=== PATIENT | female | born 1965 | race Hispanic/Latino ===

== ENCOUNTER 2019-04-20 01:18 | Outpatient (CLI) | payer BC ==
[2019-04-20 18:07] LABS: Anion Gap 15 mmol/L (10-20); BUN (Urea Nitrogen) 16 mg/dL (9.8-20.1); Calc. Creatinine Clearance 0 mL/min (70-130); Calcium 9.9 mg/dL (7.8-10.44); Carbon Dioxide 21 mmol/L (22-29); Chloride 105 mmol/L (98-107); Estimated GFR-MDRD 56; Glucose 101 mg/dL (70-105); Potassium 4.1 mmol/L (3.5-5.1); Sodium 137 mmol/L (136-145)
--- NOTE | 2019-04-22 11:59 | EKG ---
Test Reason : Blood Pressure : / mmHG Vent. Rate : 087 BPM Atrial Rate : 087 BPM P-R Int : 170 ms QRS Dur : 086 ms QT Int : 358 ms P-R-T Axes : 066 014 040 degrees QTc Int : 430 ms Normal sinus rhythm Low voltage QRS Cannot rule out Anterior infarct , age undetermined Abnormal ECG When compared with ECG of 07-DEC-2014 10:41, No significant change was found Confirmed by DR. Chasity ROCK ([id number]) on 04/22/2019 11:59:13 AM Referred By: AMY Confirmed By:DR. Chasity ROCK
== END 2019-04-20 01:19 | disposition home or self-care (01) ==
LOC: LABBT 01:18
PROVIDERS: ATTEND Obstetrics & Gynecology
DX: Z01.818 Encounter for other preprocedural examination (principal); D21.9 Benign neoplasm of connective and other soft tissue, unspecified
CPT/HCPCS: 80048; 93005; 93010

== ENCOUNTER 2019-04-20 16:15 | Inpatient (IN) | payer BC ==
[2019-04-20 17:26] VITALS: BMI 48.8
[2019-04-20 17:43] LABS: Hemoglobin 15.3 g/dL (12.0-16.0); Mean Corpuscular Hemoglobin 27.4 pg (27.0-31.0); Mean Corpuscular Volume 85.6 fL (78.0-98.0); Mean Platelet Volume 6.4 fL (7.4-10.4); Platelet Count 363 thou/uL (130-400); RBC Distribution Width 14.3 % (11.5-14.5); White Blood Cell (WBC) Count 11.5 thou/uL (4.8-10.8)
--- NOTE | 2019-04-20 23:53 | HP ---
DATE OF PLANNED PROCEDURE: 04/21/2019. PREOPERATIVE DIAGNOSES: 1. Large fibroid uterus. 2. Morbid obesity. 3. Personal history of breast cancer. SURGERY TO BE PERFORMED: Total abdominal hysterectomy with bilateral salpingo-oophorectomy with placement of On-Q nerve block pump. HISTORY OF PRESENT ILLNESS: Ms. Bri Goodrich is a 54-year-old, postmenopausal, G2, P2, who has been a patient of Dr. Hoyt' since 2014 with a known large fibroid uterus since then. The patient declined surgery in the past as she was asymptomatic to the large fibroid uterus. She now reports more pelvic pain and now desires hysterectomy. The patient is approximately 5 years in remission from stage 3 left-sided breast cancer, who had bilateral mastectomy. Her past medical history also includes morbid obesity, hypertension, diabetes, and GERD. PAST MEDICAL HISTORY: GERD, diabetes, hypertension and history of triple negative left-sided breast cancer. ALLERGIES: NO KNOWN DRUG ALLERGIES. PAST SURGICAL HISTORY: Two previous sections and bilateral mastectomy. FAMILY HISTORY: Significant for diabetes, colon cancer in her father, leukemia in her father, hypertension. SOCIAL HISTORY: The patient has never been a smoker. She does not drink alcohol or do illicit drugs. OBSTETRICAL HISTORY: Two previous sections. GYNECOLOGIC HISTORY: Last menstrual period many years ago with the exception of spotting noted one time in December 2017, which was evaluated by her primary care provider and Dr. Hoyt. The patient is sexually active. She denies any STDs or PID in her most recent Pap smear and is negative for HPV. PHYSICAL EXAMINATION: VITAL SIGNS: Height 5 feet, weight 252 pounds, BMI 49, blood pressure 136/84, pulse 89, respirations 18, O2 saturation 99%. GENERAL: No acute distress. Alert and oriented. Obese. HEENT: Grossly normal. CARDIOVASCULAR: Regular rate and rhythm. LUNGS: Nonlabored breathing. ABDOMEN: Enlarged pelvic mass suspected as fibroid uterus to approximately 3 or 4 cm above the umbilicus and extending to the pelvic sidewall. SKIN: No rashes. : Deferred at time of preop exam. PSYCHIATRIC: Appropriate mood and affect. ASSESSMENT AND PLAN: Ms. Bri Goodrich is a 54-year-old, G2, P2, with a large fibroid uterus that was first noted approximately 4 years ago on an exam by Dr. Hoyt and has been asymptomatic to the mass until now. The patient now requests removal of the fibroid uterus, tubes, and ovaries with total abdominal hysterectomy, bilateral salpingo-oophorectomy. Because of the difficulty examining the patient accurately, because of an obese habitus and the palpable size of the mass, an MRI was ordered and recommended; however, the patient declined the MRI due to cost, understanding that an MRI would be helpful in risk stratifying the mass to malignancy as well as for surgical planning, we discussed intraoperative ureteral stent placement, which has been requested from the urology team. The patient is aware of the risks and benefits of surgery. She is also aware that if malignancy is noted, future medical and/or surgical management will likely be necessary. The patient understands the risks and benefits of the procedure to include, but not limited to, bleeding, infection, damage to intraabdominal organs or organs in the pelvis, inability to fully diagnose and treat all conditions at the time of surgery with possible need for future medical and/or surgical management, she also understands the risk of surgery which include bleeding, infection, blood clots in the legs or lungs or risk due to anesthesia that will be reviewed with her on the day of surgery. The patient's questions have been answered to her satisfaction. We also reviewed postoperative pain control plans including the On-Q pump, which the patient is interested in. The patient's questions have been answered to her satisfaction and she desires to proceed with the procedure as listed above. Job ID: [id number]
[2019-04-21] MEDS ORDERED: CeleCOXIB 100 MG CAP ONE (10:47)
[2019-04-21] MEDS ORDERED: Gabapentin 300 MG CAP ONE (10:47)
[2019-04-21] MEDS ORDERED: Famotidine/PF 20 mg/2ml Vial ONE (10:48)
[2019-04-21] MEDS ORDERED: Midazolam HCl 2 mg/2 ml Vial ONE (12:19)
[2019-04-21] MEDS ORDERED: Fentanyl 250 MCG/5 ML VIAL ONE (12:19)
[2019-04-21] MEDS ORDERED: Iothalamate Meglumine 60% 50 ML VIAL FS ONE (12:27)
[2019-04-21] MEDS ORDERED: Ropivacaine 0.2% 550 ML 750 ML NERVE BLCK SCH ×2 (12:30→14:45)
[2019-04-21] MEDS ORDERED: Levofloxacin 500 mg/D5W 100 ml Premix Bag ONE (12:36)
[2019-04-21] MEDS ORDERED: Ketorolac Tromethamine 30 MG/ML VIAL ONE (13:35)
[2019-04-21] MEDS ORDERED: Rocuronium Bromide 10 MG/ML (10ML VIAL) ONE ×2 (13:35→13:38)
[2019-04-21] MEDS ORDERED: Ondansetron PF 4 MG/2 ML Vial ONE ×2 (13:35→13:38)
[2019-04-21] MEDS ORDERED: Glycopyrrolate 0.2 MG/ML 5 ML SYRINGE ONE (13:35)
[2019-04-21] MEDS ORDERED: PROPOFOL 200 MG/20 ML VIAL ONE ×2 (13:35→13:38)
[2019-04-21] MEDS ORDERED: PHENYLEPHRINE-NS 100 MCG/ML 10 ML SYRINGE ONE (13:35)
[2019-04-21] MEDS ORDERED: Lidocaine 1% PF 5 ML VIAL ONE (13:38)
--- NOTE | 2019-04-21 14:41 | RAD ---
RETROGRADE PYELOGRAM: 2 fluoroscopic images from OR presented during retrograde procedure. INDICATION: Imaging during retrograde procedure and stent placement. FINDINGS/IMPRESSION: First image shows a right double pigtail ureteral stent and opacification of the left collecting stru ctures. The final images show bilateral double pigtail ureteral stents in place. POS: OFF
[2019-04-21] MEDS ORDERED: Ropivacaine HCl/PF 750 ML NERVE BLCK SCH (14:45)
[2019-04-21] MEDS ORDERED: Bupivacaine 0.25% HCL 30 ML VIAL ONE (16:32)
[2019-04-21] MEDS ORDERED: Morphine 4 MG/ML VIAL ONE (16:54)
[2019-04-21] MEDS ORDERED: Fentanyl 100 MCG/2 ML VIAL ONE (17:39)
--- NOTE | 2019-04-21 18:10 | OP ---
DATE OF PROCEDURE: 04/21/2019 PREOPERATIVE DIAGNOSIS: A 54-year-old female with large uterine fibroid. POSTOPERATIVE DIAGNOSIS: A 54-year-old female with large uterine fibroid. PROCEDURES PERFORMED: Cystoscopy, urethral dilatation, bilateral retrograde pyelogram, bilateral ureteral stent: Right 6 x 22, left 6 x 24 both on Dangler Gagnon catheter placement, urethral dilation ANESTHESIA: General. COMPLICATIONS: None apparent. DISPOSITION: To recovery room in stable condition. INDICATIONS FOR PROCEDURE AND HISTORY: Ms. Goodrich is a 54-year-old female undergoing total abdominal hysterectomy by Dr. Floyd due to very large uterine fibroids. She requested regarding bilateral ureteral stent due to large uterine mass. The patient desired to proceed. The patient was seen in preop, consented for the procedure above. DESCRIPTION OF PROCEDURE: After an informed consent was signed, the patient was taken to the operating room, placed in a dorsal lithotomy position with the genital area prepped and draped in the usual surgical sterile fashion. She was provided broad-spectrum antibiotics, bilateral JULIO CÉSAR hose and SCDs were placed. The patient was placed in dorsal lithotomy position. I attempted to pass a 21-Urdu cystoscope; however, there was resistance as she had atrophic urethral meatus. Using dilators, I was able to calibrate her urethra easily from 18 to 20-Urdu with ease. Subsequently, I passed a 22-Urdu cystoscope under direct visualization without significant issues. Upon entering the bladder, clear urine was noted. The bladder had somewhat of a decreased capacity due to large uterine fibroid. The UOs were identified, which appeared to be mildly patulous bilaterally. An open- ended catheter was utilized to perform right retrograde pyelogram first. There was no evidence of hydronephrosis or filling defect. I was able to pass a 0.35 Sensor wire into the lower pole and a 6 x 22 double-J ureteral stent was passed on Dangler. Bladder was emptied, and we repeated a retrograde on the left side. This kidney appeared to be somewhat higher up. Therefore, a retrograde pyelogram was performed first demonstrating no evidence of pathology with the wire 0.35 in the left upper pole, 6 x 24 double-J ureteral stent was passed. Both stents were placed on Dangler, and a 16-Urdu Gagnon catheter passed without significant issues. Danglers were taped to the patient's Gagnon. Case turned over to Gynecology to proceed with total abdominal hysterectomy. Her Gagnon catheter and her ureteral stent can be removed at the discretion of her advertising analyst at the termination of the case. She has mild urethral stenosis not of significant concern. Job ID: [id number] MTDD
[2019-04-21] MEDS ORDERED: Meperidine HCl/PF 25 MG/ML VIAL IV PRN (18:12)
[2019-04-21] MEDS ORDERED: Ondansetron HCl/PF 4 MG/2 ML Vial IVP PRN (18:12)
[2019-04-21] MEDS ORDERED: Promethazine HCl 25 MG/ML VIAL IM/IV PRN (18:12)
[2019-04-21] MEDS ORDERED: Bisacodyl 10 MG SUPP PR PRN (18:46)
[2019-04-21] MEDS ORDERED: diphenhydrAMINE 25 MG CAP PO PRN (18:46)
[2019-04-21] MEDS ORDERED: Morphine 4 MG/ML VIAL SLOW IVP PRN (18:46)
[2019-04-21] MEDS ORDERED: Promethazine HCl 25 MG/ML VIAL IM PRN (18:46)
[2019-04-21] MEDS ORDERED: HYDROcodone/Acetaminophen 5/325 mg Tablet PO PRN ×2 (18:46)
[2019-04-21] MEDS ORDERED: Ondansetron PF 4 MG/2 ML Vial IVP PRN (18:46)
[2019-04-21] MEDS ORDERED: Zolpidem Tartrate 5 MG TAB PO PRN (18:46)
[2019-04-21] MEDS ORDERED: Simethicone Chewable 80 MG TAB PO PRN (18:46)
[2019-04-21] MEDS ORDERED: Insulin Regular 300 UNITS/3 ML VIAL SC PRN (18:46)
--- NOTE | 2019-04-21 18:55 | CON ---
DATE OF CONSULTATION: 04/21/2019 REASON FOR CONSULTATION: Perioperative ureteral stents requested. HISTORY OF PRESENT ILLNESS: Ms. Goodrich is a 54-year-old female, undergoing surgery with Dr. Robbie Floyd today for total abdominal hysterectomy, bilateral salpingo-oophorectomy due to large uterine fibroids. The patient's medication history reviewed. Dr. Floyd requesting perioperative ureteral stent, as she was concerned regarding intraoperative injury that may occur as her uterus is quite large. The patient denies history of dysuria, gross hematuria, or recurrent UTI. Seen and evaluated in preop. PAST MEDICAL HISTORY: Breast cancer, hypertension, and diabetes. PAST SURGICAL HISTORY: x2, MediPort placement, and bilateral mastectomy. CODE STATUS: Full. SOCIAL HISTORY: Negative x3. Family at bedside. HOME MEDICATIONS: Include: 1. Vitamin D. 2. Baby aspirin. 3. Metformin. 4. Metoprolol. 5. Lisinopril. ALLERGIES: NO KNOWN DRUG ALLERGIES. REVIEW OF SYSTEMS: Ten-point review of systems as above, otherwise noncontributory. PHYSICAL EXAMINATION: GENERAL: The patient is in no acute distress. HEENT: Unremarkable. HEART: Regular rate. LUNGS: Clear. ABDOMEN: Obese and protuberant. No rigidity. No rebound. : Deferred. PSYCHIATRIC: Appears to be appropriate and intact. NEUROLOGIC: No gross focal deficits. PERTINENT LABORATORY DATA: White count 11, hemoglobin 15, platelets 363. Creatinine is 1.02. No recent urinalysis. IMPRESSION AND PLAN: A 54-year-old female with large uterine fibroid, undergoing total abdominal hysterectomy, bilateral salpingo-oophorectomy. Urologic consultation obtained for perioperative ureteral stent requested by gynecologic service. The patient informed. Questions encouraged and answered. If no evidence of ureteral injury of concern, ureteral stent can be removed by gynecologic service post procedure. Job ID: [id number] [facility]
[2019-04-21] MEDS: Sodium Chloride 0.9% 1,000 ML IV SCH (21:03)
--- NOTE | 2019-04-21 22:29 | OP ---
DATE OF PROCEDURE: 04/21/2019 PREOPERATIVE DIAGNOSES: 1. Pelvic mass, suspected fibroid uterus. 2. Obesity. PROCEDURES PERFORMED: 1. Myomectomy to complete a total abdominal hysterectomy with bilateral salpingo -oophorectomy. 2. Cystoscopy with bilateral ureteral stent placement prior to hysterectomy per Dr. Danica Schulz. 3. Placement of ON-Q nerve block pump. SURGEON: Robbie Floyd DO CRIME SCENE ANALYST: Lilian Camp MD COMPLICATIONS: None. ESTIMATED BLOOD LOSS: 750 mL. ANESTHESIA: GETA. FINDINGS: 1. Abdominal mass that palpates sidewall to sidewall and approximately 4 to 5 cm above the umbilicus. Intraoperative findings with dominant approximate 25 cm diameter fibroid. 2. Normal-appearing fallopian tubes and ovaries. DESCRIPTION OF PROCEDURE: The patient was taken back to the cysto room with IV fluids running and general anesthesia was obtained. Cystoscopy and bilateral ureteral stent placement were performed by Dr. Danica Schulz for concern of distorted anatomy and large pelvic mass. Please see her dictation for full details. After the cystoscopy and ureteral stent placement was completed, the patient was transferred to [facility] for the hysterectomy. She was placed in dorsal supine position. The vagina and the abdomen were prepped and draped in normal fashion for hysterectomy. 2 g of Ancef were administered. Of note, she received preoperative Levaquin prior to her cystoscopy. She had SCDs placed on her bilateral lower extremities prior to the start of the cystoscopy. The surgeons were gowned and gloved after scrubbing into the case. A vertical midline incision was made from just above the pubic symphysis to approximately 4 cm above the umbilicus. Skin incision was carried down through the subcutaneous tissue until the fascia was reached. Once the fascia was reached, it was incised in the midline and extended the full length of the incision with a scalpel or with the curved Zurita scissors. The peritoneum was entered and stretched laterally. The peritoneum was dissected and incised to allow full visualization of the mass. One dominant fibroid was suspected in the enlarged uterus. The specimen was lifted through the incision with minimal adhesions noted between the omentum and the uterus. These adhesions were taken down with Bovie cauterization and blunt dissection. A Bookwalter retractor was assembled. Lateral retractors were placed as well as a superior retractor and bladder blade. The bowel was packed away with moist sponges. The hysterectomy portion began on the patient's left side, where a left round ligament was noted to be very attenuated, but was identified. It was grasped with a Paula clamp, suture ligated with Vicryl suture and incised. The round ligament was dissected down anteriorly along the fibroid mass. Attention was then turned to the contralateral side, where the right utero-ovarian ligament and round ligament were clamped, cut, and suture ligated. The round ligaments were taken down anteriorly and bladder flap was created. The bladder flap was dissected away from the most proximal portion of the uterus and fibroid that could be visualized and palpated. Due to the size of the specimen, there was limited space for visualization and to operate at the uterine vessels. For this reason, the decision was made to perform a myomectomy to be able to restore and visualize the patient's anatomy. There was a reactive peritoneal covering over the uterus, which was incised with Bovie cauterization. The myometrial tissue was noted to be extremely thin and the fibroid mass dominated the entire specimen. Once the myometrium was entered, the fibroid was enucleated as one large specimen from the uterus. This was done with blunt dissection and with Bovie cauterization and primarily by creating a fundal incision over the uterus. Once the myomectomy portion of the procedure was completed, the large fibroid was handed off for pathologic review. At this point, the anatomy was restored and visualization of the uterine vessels. Bladder and uterosacral ligaments were achieved. The uterine artery on the patient's left and right side were clamped, cut, and suture ligated. The plane between the cervix and the bladder was then dissected and entered, and the bladder was dissected away from the cervix. Straight Cheng clamps were used between the uterine artery and the cervix. These pedicles were taken down with Zurita scissors and suture ligated. Curved Cheng clamps were then placed across the cervical vaginal junction and the uterus and cervix specimen was amputated and sent for pathologic review. The vaginal cuff was then closed in routine fashion with Cheng sutures at the corner of the cuff in a series of interrupted [id number] between the uterosacral ligaments and corners of the vaginal cuff. After the uterus specimen was amputated and vaginal cuff closure was complete, attention was turned to the removal of the adnexa. Beginning on the patient's right side, remaining portion of the right ovary and right fallopian tube were grasped with a Paula clamp and ureteral stent were palpated and noted to be well away from the adnexa. Cheng clamp was placed across the IP ligament. The adnexa were then cut and removed for pathologic review and the pedicle was suture ligated in similar fashion, the left fallopian tube and ovary were removed from the patient's left side. The pelvis was then copiously irrigated. A small area of bleeding was noted at the corners of the vaginal cuff, which were oversewn with Vicryl suture and a layer of FloSeal was applied between the vaginal cuff and raw peritoneal edges, however, no active bleeding was noted. Pressure was applied over the FloSeal with a clean and dry sponge as prescribed. The FloSeal was applied after irrigation had been completed and the counts were correct. After the FloSeal was applied, all sponges had been removed from the abdomen and the counts were correct. The peritoneal edges were reapproximated with plain gut suture. Two ON-Q catheter tips were placed through the skin, subcutaneous tissue, and directed between the fascia and rectus muscles, one on each side of the vertical incision. The fascia was then reapproximated with PDS suture in a running fashion the full length of the incision. The subcutaneous tissue was then irrigated, suctioned dry. No areas of bleeding were noted. The subcutaneous tissue was reapproximated with plain gut suture. ON-Q catheters were threaded through the ports and they were primed with 0.25% Marcaine. The incision edges were reapproximated with a sterile stapler. The NITA prophylactic wound dressing was placed over the incision. Tegaderms were placed over the ON-Q catheter ports. The Gagnon catheter and ureteral stents were removed without difficulty, and a new Gagnon was replaced using sterile technique. The patient was then cleaned, dried, and transferred to the recovery room in good condition. Job ID: [id number] [facility]
[2019-04-22] MEDS: Ketorolac Tromethamine 30 MG/ML VIAL IVP SCH ×4 (00:21→17:44)
[2019-04-22] MEDS: Sodium Chloride 0.9% 1,000 ML IV SCH ×2 (02:50→10:58)
[2019-04-22 06:30] LABS: Mean Corpuscular HGB CONC 32.7 g/dL (32.0-36.0); Mean Corpuscular Hemoglobin 28.1 pg (27.0-31.0); Mean Corpuscular Volume 85.9 fL (78.0-98.0); Mean Platelet Volume 6.5 fL (7.4-10.4); Platelet Count 259 thou/uL (130-400); RBC Distribution Width 14.1 % (11.5-14.5); Red Blood Cell (RBC) Count 4.26 mill/uL (4.20-5.40); White Blood Cell (WBC) Count 12.5 thou/uL (4.8-10.8)
[2019-04-22] MEDS: metFORMIN 500 MG TAB PO SCH ×2 (08:05→17:44)
[2019-04-22] MEDS: Lisinopril 10 MG TAB PO SCH (08:05)
--- NOTE | 2019-04-22 08:08 | PRG ---
DATE OF SERVICE: 04/22/2019 SUBJECTIVE: The patient is alert and awake. No new complaints. OBJECTIVE: VITAL SIGNS: Stable. I's and O's 650 of urine output with hematuria component. In the tubing, it is mina red. Some sediment is clot in the bag itself. ABDOMEN: Incision dressing is intact, On-Q pump and site. Gagnon catheter is inadequately secured, repositioned. Nursing education provided on proper care of STATLOCK. PERTINENT LABORATORY DATA: White count 12, hemoglobin 12. No basic metabolic panel this morning. IMPRESSION AND PLAN: A 54-year-old female with history of very large uterine fibroid, status post cysto, bilateral retrograde, bilateral ureteral stents subsequently removed by Gynecology at the termination of the procedure for total abdominal hysterectomy. The patient has hematuria, likely due to indwelling ureteral stent, which I anticipate will resolve. However, given she has persistent hematuria, leave indwelling urethral Gagnon catheter until okay with . Check BMP this morning. Anticipate, if urine output becomes clear, I will reassess the patient tomorrow for Gagnon catheter removal. Job ID: [id number]
[2019-04-22 08:13] LABS: Anion Gap 10 mmol/L (10-20); BUN (Urea Nitrogen) 12 mg/dL (9.8-20.1); Calc. Creatinine Clearance 128 mL/min (70-130); Carbon Dioxide 23 mmol/L (22-29); Chloride 108 mmol/L (98-107); Estimated GFR-MDRD 66; Glucose 121 mg/dL (70-105); Potassium 4.4 mmol/L (3.5-5.1); Sodium 137 mmol/L (136-145)
[2019-04-22] MEDS: Aspirin 81 mg Enteric Coated Tablet PO SCH (09:30)
--- NOTE | 2019-04-22 10:28 | PDOC.EVN ---
Event Note - Event Note Event Note: POD1 S: feeling better than expected, no N/V, some hunger, pain is controlled O: Vital Signs (12 hours) Temp Pulse Resp BP Pulse Ox 04/22/19 08:06 94 L 04/22/19 07:55 98.3 F 87 20 125/60 95 04/22/19 03:50 98.8 F 88 18 124/60 95 04/22/19 02:10 86 18 95 04/22/19 01:01 83 18 144/65 H 96 04/22/19 00:18 98.9 F 86 18 154/69 H 97 04/21/19 23:05 98.4 F 81 18 150/71 H 98 Weight Weight 250 lb Gen: NAD, A and O Chest: nonlabored breathing Abd: nondistended, appropriate tenderness, dressing CDI Ext: SCDs just came off, were on all night, no cords or edema Grossman: blood tinged urine Laboratory Results - last 24 hr 04/22/19 04/22/19 04/22/19 00:22 05:46 05:47 WBC 12.5 H RBC 4.26 Hgb 12.0 Hct 36.6 MCV 85.9 MCH 28.1 MCHC 32.7 RDW 14.1 Plt Count 259 MPV 6.5 L Sodium Potassium Chloride Carbon Dioxide Anion Gap BUN Creatinine Estimated GFR (MDRD) Glucose POC Glucose 142 H 141 H Calcium 04/22/19 07:29 WBC RBC Hgb Hct MCV MCH MCHC RDW Plt Count MPV Sodium 137 Potassium 4.4 Chloride 108 H Carbon Dioxide 23 Anion Gap 10 BUN 12 Creatinine 0.89 Estimated GFR (MDRD) 66 Glucose 121 H POC Glucose Calcium 8.0 Path: pending A/P: POD#1 sp cystoscopy for ureteral stent placement, MICHAEL/BSO with intraoperative myomectomy and OnQ pump placement. Doing well, discussed not advancing diet until good BS/ambulating/passing gas. Discussed if she is not ambulatory at 24hrs post op today starting prophylactic dose of Lovenox. Plan to continue grossman catheter until removal ordered by urology.
[2019-04-23] MEDS: Sodium Chloride 0.9% 1,000 ML IV SCH ×3 (00:33→10:55)
[2019-04-23] MEDS: Ketorolac Tromethamine 30 MG/ML VIAL IVP SCH ×3 (00:34→12:41)
--- NOTE | 2019-04-23 08:24 | PRG ---
DATE OF SERVICE: 04/23/2019 SUBJECTIVE: The patient resting comfortably, doing well. OBJECTIVE: VITAL SIGNS: T-max of 100.3, T current 98, 82, 16, 92, 97/50. I's and O's, urine output 1600 mina tea colored, improved hematuria. ABDOMEN: Soft. Dressing is in place. IMPRESSION AND PLAN: Ms. Goodrich is a 54-year-old female, status post open total abdominal hysterectomy, gynecology, status post cysto, bilateral retrograde, bilateral ureteral stent placement. Procedure per request by gynecology. Surgery was uneventful. She did have hematuria, status post stent, which has near resolved. Discontinue Gagnon. Her kidney function is stable. will sign off. Call if any questions or concerns. Job ID: [id number] [facility]TDD
[2019-04-23] MEDS: Aspirin 81 mg Enteric Coated Tablet PO SCH (08:40)
[2019-04-23] MEDS: metFORMIN 500 MG TAB PO SCH (08:40)
[2019-04-23] MEDS: Lisinopril 10 MG TAB PO SCH (08:42)
[2019-04-23 11:20] VITALS: BP 102/53; TEMP 98.8
--- NOTE | 2019-04-23 13:32 | PDOC.EVN ---
Event Note - Event Note Event Note: POD2 Doing well, ambulating, tolerating diet, no pain, passing gas and voiding spontaneously O: VSWNL (100.3 noted yesterday with immediate repeat WNL) NAD A and O Ambulating in the room Inc CDI A/P: POD2 doing well, plan for DC home today. Instructions for OnQ pump removal reviewed.
[2019-04-23] MEDS ORDERED: Ibuprofen 800 MG TAB PO SCH (14:00)
--- NOTE | 2019-04-24 02:50 | DIS ---
DATE OF ADMISSION: 04/21/2019 DATE OF DISCHARGE: 04/23/2019 ADMISSION DIAGNOSES: Planned abdominal hysterectomy and cystoscopy. DISCHARGE DIAGNOSES: Planned abdominal hysterectomy and cystoscopy, status post cystoscopy, ureteral stent placement with removal and total abdominal hysterectomy with bilateral salpingo-oophorectomy and On-Q pump placement. HOSPITAL COURSE: Ms. Bri Goodrich was admitted on 04/21/2019, to undergo planned total abdominal hysterectomy with bilateral salpingo-oophorectomy with cystoscopy and ureteral stent placement and removal at the end of the case. The patient underwent the aforementioned procedure without complication. By postoperative day #2, she was able to ambulate without assistance. She was passing gas and eating a regular diet without nausea. Her pain was controlled with On-Q pump, and she was not requiring oral pain medications. She was able to void 300 mL spontaneously after her Gagnon catheter was removed, and she requested to discharge home. The patient was discharged to home on postoperative day #2 in good condition with plans to follow up in the office in 1 week for NITA wound dressing removal and staple removal. Job ID: [id number]
== END 2019-04-23 14:03 | disposition home or self-care (01) | DRG 742 ==
LOC: SURG A 04-21 08:48 → 3SE 04-21 18:46
PROVIDERS: ADMIT Obstetrics & Gynecology; ATTEND Obstetrics & Gynecology
PROC: 0UT90ZZ Resection of Uterus, Open Approach (ICD-10-PCS; principal; 2019-04-21)
PROC: 0UT20ZZ Resection of Bilateral Ovaries, Open Approach (ICD-10-PCS; 2019-04-21)
PROC: 0UT70ZZ Resection of Bilateral Fallopian Tubes, Open Approach (ICD-10-PCS; 2019-04-21)
PROC: 0UB90ZZ Excision of Uterus, Open Approach (ICD-10-PCS; 2019-04-21)
PROC: 0T788DZ Dilation of Bilateral Ureters with Intraluminal Device, Via Natural or Artificial Opening Endoscopic (ICD-10-PCS; 2019-04-21)
PROC: BT14YZZ Fluoroscopy of Kidneys, Ureters and Bladder using Other Contrast (ICD-10-PCS; 2019-04-21)
DX: D25.9 Leiomyoma of uterus, unspecified (principal); Z68.42 Body mass index [BMI] 45.0-49.9, adult; E66.01 Morbid (severe) obesity due to excess calories; K21.9 Gastro-esophageal reflux disease without esophagitis; I10 Essential (primary) hypertension; E11.9 Type 2 diabetes mellitus without complications; Z90.13 Acquired absence of bilateral breasts and nipples; Z85.3 Personal history of malignant neoplasm of breast; Z79.82 Long term (current) use of aspirin; Z79.84 Long term (current) use of oral hypoglycemic drugs; Z79.899 Other long term (current) drug therapy; R31.9 Hematuria, unspecified
CPT/HCPCS: 36415; 36416; 74420; 80048; 85027; 86850; 86900; 86901; 88307; 93005; 93010; A4306; C1758; C1769; J0690; J1885; J1956; J2001; J2250; J2270; J2405; J2704; J2795; J3010; Q9961; S0020; S0028

== ENCOUNTER 2019-04-24 16:13 | Emergency (ER) | payer BC | END 2019-04-24 17:33 | disposition home or self-care (01) | LOC: ERS 16:13 | DX: Z48.89 Encounter for other specified surgical aftercare (principal); Z79.899 Other long term (current) drug therapy | CPT/HCPCS: 99282 ==